=== PATIENT | male | born 1940 | race Caucasian/White ===

== ENCOUNTER 2018-03-29 13:51 | Inpatient (IN) | payer MEDICARE, OTHER ==
[2018-03-29] MEDS ORDERED: VANCOMYCIN IV PER PHARMACY 1 EACH MISC MISCELLANE PRN (15:54)
[2018-03-29] MEDS ORDERED: LORazepam 2 MG/ML INJ ONE (16:34)
--- NOTE | 2018-03-29 16:41 | P.CNPUL ---
History of Present Illness Consult date: 03/29/18 Reason for consult: dyspnea History of present illness: 77-year-old white male patient who has been recently admitted to [facility] because of shortness of breath and acute exacerbation of chronic bronchiectasis him a comes in to [facility] for the same reason. The patient back then was treated with IV antibiotics and bronchodilators and I had the chance to evaluate this patient's pulmonary status. He did show some improvement and he was discharged home following his sixth day of hospital admission. He came in again after being discharged for worsening shortness of breath without having any fever or chills. He had a minimal cough. His cough was congested. He denied having any chest pain. No altered mentation. He was getting progressively more hypoxic and his breathing was more labored overnight. I was informed of this admission by Dr. Daley , the hospitalist, who in turn wanted to chest for this patient to [facility] , and we accepted this patient for further care now Hospital. This patient has been followed up by Dr. Casas whereas been his stamper blocker for many years. 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 He has chronic dyspnea and he has not been on oxygen before. He has had chronic bronchiectasis many years back. The exact etiology has not been established. The patient was hospitalized once in December 2016 and the second time and February 2018. He was maintained on Bactrim 1 tablet 3 times a week for antibiotic prophylaxis. He has previous chest x-ray showed chronic bronchiectatic changes along with some limited scarring. His last CAT scan of the chest was in 2016 that showed extensive bronchiectatic changes with mucoid impaction of the airways. No history of any tuberculosis. No history of ABPA. No history of any hemoglobin deficiency. Baseline IgE level is not known. He has previous history of RA and he has been maintained on Imuran. He is known to have ulcerative colitis. No previous history of influenza or viral pneumonia as per history of any massive pneumonias of empyema. No hemoptysis. He is known to have also some peripheral neuropathy. His current labs from [facility] showed a white cell count of 5.47 with a hemoglobin of 9.3, and the rest of the blood work and electrolytes were essentially within normal limits. His troponins were negative. His sputum analysis that was done on showed usual respiratory felix. No previous infections with MRSA. No previous infections with gram-negative microbes such as Pseudomonas. Upon arrival to the intensive care unit, the patient was found to be in severe respiratory distress. Upon transport to our hospital the patient was placed on a BiPAP. He was on a BiPAP pressure of 80s over forward and FiO2 of 50%. His minute ventilation was above 25 L per minute. He was quite short of breath. He looks very emaciated and weak yet still awake. He was following some simple commands. Immediately, who placed this patient on our hospital BiPAP at a pressure of 14/6 cm of water with an FiO2 of 50%. The nephew is at the bedside. He does not want to get intubated or placed on a mechanical ventilator. No previous history of DVT or pulmonary embolism. I was a bit surprised by the condition as I was told that the patient was rather stable for transfer. I came to follow the patient was in severe acute respiratory distress and apparent is been going on for the past several hours. Home medication includes Advair 250/50 one puff twice a day, Bactrim double strength 1 tablet 3 times a week mild distal solution on a when necessary basis , aspirin 81 mg by mouth daily, Imuran 50 mg by mouth daily, sodium acetate 1 tablet daily, melatonin 1 mg at bedtime, metoprolol 25 mg by mouth daily, omeprazole 20 mg by mouth daily and temazepam 50 mg by mouth daily. He also has completed course of Ceftin 500 mg by mouth twice a day following his discharge from the hospital. Review of Systems Review of system is positive for weight loss, weakness, diminished appetite, chronic cough, congestion, mucus production, limitation of exercise capacity, chronic arthritic pain, chronic gastrointestinal symptoms related to ulcerative colitis which are currently inactive and stable. No altered mentation. No dysuria fixed urgency. No skin rashes. No falls. No active arthritis at this point in time. He has a remote history of smoking none for now. Past Medical History Additional Past Medical History / Comment(s): Severe cylindrical bronchiectasis , ulcerative colitis, rheumatoid arthritis maintained previously on methotrexate which was stopped due to pulmonary toxicity, remote history of empyema/pneumothorax, treated, cachexia, depression, coronary artery disease Additional Past Surgical History / Comment(s): Previous bronchoscopy, colonoscopy, EGD, chest tube placement Smoking Status: Former smoker (The patient is a former smoker. No active alcoholism. No similar IV drugs.) Past Alcohol Use History: None Reported Past Drug Use History: Unable to Obtain Medications and Allergies Home Medications and Allergies Comment(s): ALLERGIES to Vibramycin, M0, lisinopril, methotrexate and penicillin Physical Exam Gen. appearance, uncomfortable a severe degree of respirator distress currently on Bipap. He gets short of breath even while in the BiPAP and has a very high minute ventilation of at least 25-30 L per minute. He is unable to speak any sentences at this point in time. The patient is a thin cachectic frail elderly male patient. He is alert and oriented 3. His answering questions appropriately. Head exam was generally normal. There was no scleral icterus or corneal arcus. Mucous membranes were moist. Neck was supple and without jugular venous distension, thyromegaly, or carotid bruits. Carotids were easily palpable bilaterally. There was no adenopathy. Lungs sounds are actively diminished bilaterally there are a few crackles at lung bases and scattered rhonchi heard throughout the lung carter bilaterally. The patient is tachypneic. The patient has significant risk for this is using excessive muscle breathing. Cardiac exam revealed the PMI to be normally situated and sized. The rhythm was irregular and he is tachycardic and no extrasystoles were noted during several minutes of auscultation. The first and second heart sounds were normal and physiologic splitting of the second heart sound was noted. There were no murmurs , rubs, clicks, or gallops. Abdominal exam revealed normal bowel sounds. The abdomen was soft, non-tender, and without masses, organomegaly, or appreciable enlargement of the abdominal aorta. Examination of the extremities revealed easily palpable radial, femoral and pedal pulses. There was no cyanosis, clubbing or edema. Examination of the skin revealed no evidence of significant rashes, suspicious appearing nevi or other concerning lesions. Results - Diagnostic Findings Chest x-ray: image reviewed Assessment and Plan Plan: Assessment 1 acute exacerbation of chronic bronchiectasis. Rule out superimposed taken bronchitis/pneumonia. Rule out superimposed pulmonary embolism. 2 acute hypoxic respiratory failure secondary to above, initially placed on high flow oxygen currently on BiPAP at a pressure of 14/6 cm of water with an FiO2 of 50% and in impending respiratory failure. 3 history of chronic cylindrical bronchiectasis essentially involving the lower lobes with previous hospitalization. No documented or objective evidence of any gram-negative or a staphylococcal pulmonary infections in the past. 4 chronic mucous retention secondary to advanced bronchiectasis 5 chronic dyspnea secondary to above, with acute decompensation 6 chronic cachexia secondary to above 7 coronary artery disease 8 ulcerative colitis maintained on Imuran 9 chronic anxiety/depression 10 chronic antibiotic prophylaxis utilizing Bactrim. Plan We will cover this patient with DuoNeb nebulized treatments around the clock. Will put this patient on broad-spectrum antibiotics. The choice of antibiotics including a combination of cefepime and vancomycin for now. Note that the patient has received Bactrim prophylaxis on outpatient basis. Aggressive pulmonary toileting. Vest therapy if possible. Advice regarding nutrition. May need a bronchoscopy with therapeutic airway suctioning to improve his oxygenation if no improvement within the next 24-[address] scan of the chest with contrast to further evaluate this patient's acute hypoxic respiratory failure to make sure there is no other cause for this patient's respiratory failure. The patient ideally is intubated and placed on a mechanical ventilator. He has a DO NOT INTUBATE CODE STATUS. I'm going to readdress the situation. Stat chest x-ray. Stat blood gas. Continue BiPAP therapy for respiratory support. Ativan for anxiety. Check cardiac enzymes. Check BMP. Echocardiogram in a.m. Hold immunosuppression treatment. We'll continue to follow. Condition is critical. High risk for mortality based on his advanced lung disease and very poor baseline performance and functional status. Case was discussed with internal medicine, Dr. Best Time with Patient: Greater than 30
[2018-03-29] MEDS ORDERED: HEPARIN SODIUM,PORCINE 10,000 UNIT/ML 1 ML VIAL IV ONE (16:43)
[2018-03-29 16:55] LABS: ABG Base Excess 3.4 mmol/L; ABG HCO3 28 mmol/L (21-25); ABG Oxygen Saturation 97.2 % (94-97); ABG PCO2 40 mmHg (35-45); ABG PH 7.44 (7.35-7.45); ABG PO2 84 mmHg (83-108); ABG TCO2 29 mmol/L (19-24)
--- NOTE | 2018-03-29 16:56 | P.HPIM ---
History of Present Illness 77-year-old the male transferred from [facility] he was admitted there for acute respiratory failure and worsening pulmonary status patient was transferred here. Patient is DO NOT INTUBATE patient is DO NOT RESUSCITATE. Patient appears to have chronic bronchiectasis patient was admitted in the hospital recently for left lower lobe pneumonia subsequently treated Rocephin and was discharged home comes back again 10 days later with worsening respiratory failure presently on BiPAP with FiO2 of 50% patient is in ICU drying oven tender evaluated the patient. Patient has chronic dyspnea but not on oxygen at home. Patient was on antibiotic prophylaxis with Bactrim as an outpatient because of chronic bronchiectasis has history of ulcerative colitis on Imuran sputum cultures during his last hospitalization from March 21 did not show any significant abnormality. Upon evaluation here patient looked very sick to On BiPAP. Upon review of the CAT scans patient has severe bilateral bronchiectasis with emphysematous changes. This CAT scan was a while ago. Patient appears to have severe chronic lung disease in the form of bronchiectasis. Now acute respiratory failure. Patient is undergoing workup with ABGs, patient will be empirically started on IV heparin for possible pulmonary embolism d-dimer will be obtained BNP will be obtained patient does not have any elevated JVD chest x-ray showed mediastinal shift with significant lung disease possibility of left lower lobe pneumonia patient is on cefepime empirically being covered for this until the etiology of his acute respiratory failure is known. She is undergoing CT of the chest with contrast to rule out pulmonary embolism and also to see if there is any mucous plug that Tomy and drying oven tender evaluated the patient discussed with the family members. Review of Systems Unable to obtain due to his respiratory distress Past Medical History Additional Past Medical History / Comment(s): Severe cylindrical bronchiectasis , ulcerative colitis, rheumatoid arthritis maintained previously on methotrexate which was stopped due to pulmonary toxicity, remote history of empyema/pneumothorax, treated, cachexia, depression, coronary artery disease Additional Past Surgical History / Comment(s): Previous bronchoscopy, colonoscopy, EGD, chest tube placement Smoking Status: Former smoker (The patient is a former smoker. No active alcoholism. No similar IV drugs.) Past Alcohol Use History: None Reported Past Drug Use History: Unable to Obtain Medications and Allergies Allergies Allergy/AdvReac Type Severity Reaction Status Date / Time isosorbide [From Imdur] Allergy Unknown Verified 03/29/18 16:36 lisinopril Allergy Unknown Verified 03/29/18 16:36 methotrexate Allergy Unknown Verified 03/29/18 16:36 Penicillins Allergy Unknown Verified 03/29/18 16:36 fibromycin Allergy Unknown Uncoded 03/29/18 16:36 Physical Exam Vitals: Intake and Output 03/29/18 03/29/18 03/29/18 06:59 14:59 22:59 Other: Weight 49.895 kg PHYSICAL EXAMINATION: GENERAL: The patient is alert and oriented x3, Well developed, well nourished. HEENT: Pupils are round and equally reacting to light. EOMI. No scleral icterus. No conjunctival pallor. Normocephalic, atraumatic. No pharyngeal erythema. No thyromegaly. CARDIOVASCULAR: S1 and S2 present. No murmurs, rubs, or gallops. PULMONARY: Scattered rhonchi and crackles in bilateral lower lung bases using accessory muscles of breathing on BiPAP ABDOMEN: Soft, nontender, nondistended, normoactive bowel sounds. No palpable organomegaly. MUSCULOSKELETAL: No joint swelling or deformity. EXTREMITIES: No cyanosis, clubbing, or pedal edema. NEUROLOGICAL: Gross neurological examination did not reveal any focal deficits. SKIN: No rashes. Assessment and Plan Plan: Acute hypoxic respiratory failure: Probably secondary to bronchitis mucous plug , patient is DO NOT INTUBATE because of which saw to do bronchoscopy. Patient will undergo CAT scan ABGs. Patient will be covered with empiric antibiotics cefepime sputum cultures will be obtained. Patient was also started on high intensity heparin until we rule out any pulmonary embolism rate severe bronchiectasis and chronic lung disease COPD emphysema contributed to his respiratory failure and patient is also on systemic steroids -Chronic bronchiectasis -Atrial fibrillation patient was started on Cardizem IV heparin echocardiogram will be obtained -Cachexia weight loss secondary to bronchiectasis moderate protein calorie malnutrition -Coronary artery disease -Ulcerative colitis on Imuran rheumatoid arthritis -Depression
[2018-03-29 16:58] LABS: Glucose,Whole Blood 114 mg/dL (75-99)
[2018-03-29] MEDS: IPRATROPIUM-ALBUTEROL 3 ML NEB INHALATION SCH ×3 (16:59→23:20)
[2018-03-29] MEDS: DILTIAZEM 50 MG in SODIUM CHLORIDE 0.9% 40 ML IV SCH (17:00)
[2018-03-29] MEDS ORDERED: VANCOMYCIN 1,000 MG in SODIUM CHLORIDE 0.9% 250 ML IVPB ONE (17:00)
--- NOTE | 2018-03-29 17:06 | XR ---
EXAMINATION TYPE: XR chest 1V portable DATE OF EXAM: 03/29/2018 COMPARISON: NONE HISTORY: Respiratory distress TECHNIQUE: Single frontal view of the chest is obtained. FINDINGS: Patient is rotated. There are overlying cardiac leads. Parenchymal densities are present a t the lung bases, left upper lobe. No definite pneumothorax. Apical pleural thickening is noted on th e left. Nodular appearance present at the lung bases. IMPRESSION: Rotated exam. There may be underlying congestive heart failure, cannot exclude multiple lung nodules. Chest CT may be of benefit. Rotated exam, limited.
[2018-03-29] MEDS ORDERED: DEXTROSE 5% IN WATER 100 ML with AMIODARONE 150 MG IV ONE (17:26)
[2018-03-29 17:35] LABS: HCT 31.8 % (39.0-53.0); HGB 10.3 gm/dL (13.0-17.5); MCH 28.1 pg (25.0-35.0); MCHC 32.2 g/dL (31.0-37.0); MCV 87.3 fL (80.0-100.0); Mean Platelet Volume 7.3; Platelet Count 116 k/uL (150-450); RBC 3.65 m/uL (4.30-5.90); WBC 4.8 k/uL (3.8-10.6)
[2018-03-29 17:44] LABS: Anion Gap 7 mmol/L; Blood Urea Nitrogen 27 mg/dL (9-20); Calcium 7.5 mg/dL (8.4-10.2); Carbon Dioxide 27 mmol/L (22-30); Chloride 99 mmol/L (98-107); Glucose 110 mg/dL (74-99); Potassium 3.8 mmol/L (3.5-5.1); Sodium 133 mmol/L (137-145)
[2018-03-29 17:45] LABS: D-Dimer 1.56 mg/L FEU (<0.60); INR 1.3 (<1.2); Partial Thromboplastin Time 33.1 sec (22.0-30.0); Prothrombin Time 13.1 sec (9.0-12.0)
[2018-03-29] MEDS: HEPARIN SODIUM,PORCINE 5,000 UNIT/ML 1 ML VIAL IV PRN ×2 (17:45→17:46)
[2018-03-29] MEDS: methylPREDNISolone SOD SUCCI 125 MG/2 ML VIAL IV SCH (17:46)
[2018-03-29] MEDS: AMIODARONE 450 MG in DEXTROSE 5% IN WATER 250 ML IV SCH ×2 (18:07)
[2018-03-29 18:11] LABS: Band Neutrophils % 15 %; Eosinophils # (M) 0.05 k/uL (0-0.7); Lymphocytes # (M) 0.34 k/uL (1.0-4.8); Monocytes # (M) 0.05 k/uL (0-1.0); Neutrophils % (M) 76 %; Nucleated Red Blood Cells 0 /100 WBC (0-0); Total Cells Counted 100
[2018-03-29 18:12] LABS: Poikilocytosis (M) Present
[2018-03-29] MEDS: HEPARIN SOD,PORK IN 0.45% NACL 25,000 UNIT in 0.45% NACL 1 500ML.BAG IV SCH (18:13)
[2018-03-29] MEDS ORDERED: Potassium Replacement Protocol 1 EACH MISC MISCELLANE PRN (19:17)
[2018-03-29] MEDS ORDERED: NALOXONE 0.4 MG/ML 1 ML VIAL IV PRN (19:31)
[2018-03-29 19:35] LABS: Appearance,Urine Clear (Clear); Bilirubin,Urine Negative (Negative); Blood,Urine Negative (Negative); Color,Urine Yellow; Glucose,Urine (UA) Negative (Negative); Hyaline Casts,Urine 1 /lpf (0-2); Ketones,Urine 1+ (Negative); Leukocyte Esterase,Urine Negative (Negative); Mucus,Urine Few /hpf; Nitrite,Urine Negative (Negative); Protein,Urine 1+ (Negative); Specific Gravity,Urine 1.027 (1.001-1.035); Urobilinogen,Urine <2.0 mg/dL (<2.0); WBC,Urine 2 /hpf (0-5)
[2018-03-29 19:50] LABS: Magnesium 1.7 mg/dL (1.6-2.3); Phosphorus 3.6 mg/dL (2.5-4.5)
[2018-03-29] MEDS: BUDESONIDE 0.5 MG/2 ML NEBU INHALATION SCH (20:28)
[2018-03-29] MEDS: FORMOTEROL FUMARATE 20 MCG/2 ML NEBU INHALATION SCH (20:28)
[2018-03-29] MEDS: PANTOPRAZOLE 40 MG/10 ML VIAL IV SCH (22:06)
[2018-03-29] MEDS: POTASSIUM CHLORIDE 10 MEQ in WATER FOR INJECTION 1 100ML.BAG IVPB SCH ×2 (22:07→23:18)
[2018-03-29] MEDS: LORazepam 2 MG/ML INJ IV PRN (22:07)
[2018-03-29] MEDS: CEFEPIME 2 GM in SODIUM CHLORIDE 0.9% 50 ML IVPB SCH (22:08)
[2018-03-29] MEDS ORDERED: Magnesium Replacement Protocol 1 EACH MISC MISCELLANE PRN (23:48)
[2018-03-30] MEDS: methylPREDNISolone SOD SUCCI 125 MG/2 ML VIAL IV SCH ×4 (00:25→18:53)
[2018-03-30] MEDS: HEPARIN SODIUM,PORCINE 5,000 UNIT/ML 1 ML VIAL IV PRN (01:13)
[2018-03-30] MEDS: AMIODARONE 450 MG in DEXTROSE 5% IN WATER 250 ML IV SCH ×6 (01:15→18:51)
[2018-03-30] MEDS: MAGNESIUM SULFATE-D5W PMX 1 GM in DEXTROSE/WATER 1 100ML.BAG IVPB SCH ×2 (01:15→02:29)
[2018-03-30] MEDS: LORazepam 2 MG/ML INJ IV PRN ×2 (02:28→06:55)
[2018-03-30] MEDS: IPRATROPIUM-ALBUTEROL 3 ML NEB INHALATION SCH ×6 (03:17→23:38)
[2018-03-30 04:06] VITALS: BMI 14.8
[2018-03-30 06:04] LABS: HGB 9.5 gm/dL (13.0-17.5); MCH 28.7 pg (25.0-35.0); MCHC 32.9 g/dL (31.0-37.0); MCV 87.1 fL (80.0-100.0); Mean Platelet Volume 7.5; Platelet Count 117 k/uL (150-450); RBC 3.33 m/uL (4.30-5.90); RDW 15.8 % (11.5-15.5); WBC 6.9 k/uL (3.8-10.6)
[2018-03-30 06:32] LABS: ALT 24 U/L (21-72); AST 20 U/L (17-59); Albumin 1.8 g/dL (3.5-5.0); Alkaline Phosphatase 52 U/L (38-126); Anion Gap 8 mmol/L; Blood Urea Nitrogen 26 mg/dL (9-20); Calcium 7.6 mg/dL (8.4-10.2); Carbon Dioxide 22 mmol/L (22-30); Chloride 105 mmol/L (98-107); Glucose 182 mg/dL (74-99); Magnesium 2.4 mg/dL (1.6-2.3); Phosphorus 3.5 mg/dL (2.5-4.5); Potassium 4.6 mmol/L (3.5-5.1); Sodium 135 mmol/L (137-145); Total Protein 4.7 g/dL (6.3-8.2)
--- NOTE | 2018-03-30 06:40 | XR ---
EXAMINATION TYPE: XR chest 1V DATE OF EXAM: 03/30/2018 HISTORY: possible PE. REFERENCE: Previous study dated 03/29/2018. FINDINGS: The exam is somewhat rotated. The heart is not enlarged. There is worsening alveolar and in terstitial airspace disease. There is confluent opacity at the left lung base. There are small, bilat eral effusions. IMPRESSION: 1. COARSE INTERSTITIAL AIRSPACE DISEASE. SOME OF THIS MAY BE CHRONIC. 2. I COULD NOT EXCLUDE SOME DEGREE OF HEART FAILURE. 3. SMALL, BILATERAL EFFUSIONS.
[2018-03-30 06:48] LABS: Band Neutrophils % 18 %; Lymphocytes # (M) 0.48 k/uL (1.0-4.8); Monocytes # (M) 0.07 k/uL (0-1.0); Myelocytes # (M) 0.07 k/uL (0); Myelocytes % 1 %; Neutrophils % (M) 73 %; Nucleated Red Blood Cells 0 /100 WBC (0-0); Total Cells Counted 200
[2018-03-30] MEDS: DILTIAZEM 50 MG in SODIUM CHLORIDE 0.9% 40 ML IV SCH ×2 (06:55→09:14)
[2018-03-30] MEDS: FORMOTEROL FUMARATE 20 MCG/2 ML NEBU INHALATION SCH ×2 (07:54→19:37)
[2018-03-30] MEDS: BUDESONIDE 0.5 MG/2 ML NEBU INHALATION SCH ×2 (07:54→19:37)
[2018-03-30] MEDS ORDERED: ENOXAPARIN 40 MG/0.4 ML SYRINGE SQ SCH (09:00)
[2018-03-30 09:11] LABS: Glucose,Whole Blood 179 mg/dL (75-99)
[2018-03-30] MEDS: INSULIN ASPART 100 UNIT/ML 1 ML 10 ML VIAL SQ SCH ×3 (09:13→18:50)
[2018-03-30] MEDS: TAMSULOSIN 0.4 MG CAP.ER.24H PO SCH (09:14)
[2018-03-30] MEDS: PANTOPRAZOLE 40 MG/10 ML VIAL IV SCH (09:15)
[2018-03-30] MEDS: METOPROLOL SUCCINATE (ER) 25 MG TAB.ER.24H PO SCH (09:15)
[2018-03-30 09:17] LABS: ABG Base Excess -1.8 mmol/L; ABG HCO3 24 mmol/L (21-25); ABG Oxygen Saturation 99.6 % (94-97); ABG PCO2 48 mmHg (35-45); ABG PH 7.31 (7.35-7.45); ABG PO2 152 mmHg (83-108); ABG TCO2 26 mmol/L (19-24)
[2018-03-30] MEDS: CEFEPIME 2 GM in SODIUM CHLORIDE 0.9% 50 ML IVPB SCH ×2 (09:17→20:50)
[2018-03-30] MEDS: VANCOMYCIN 750 MG in SODIUM CHLORIDE 0.9% 250 ML IVPB SCH ×2 (09:18→18:54)
[2018-03-30] MEDS: NOREPINEPHRINE 4 MG in SODIUM CHLORIDE 0.9% 250 ML IV SCH ×2 (09:42→12:37)
[2018-03-30 12:14] LABS: Glucose,Whole Blood 171 mg/dL (75-99)
--- NOTE | 2018-03-30 13:42 | P.PN ---
Subjective Progress Note Date: 03/30/18 77-year-old white male patient who has been recently admitted to [facility] because of shortness of breath and acute exacerbation of chronic bronchiectasis him a comes in to [facility] for the same reason. The patient back then was treated with IV antibiotics and bronchodilators and I had the chance to evaluate this patient's pulmonary status. He did show some improvement and he was discharged home following his sixth day of hospital admission. He came in again after being discharged for worsening shortness of breath without having any fever or chills. He had a minimal cough. His cough was congested. He denied having any chest pain. No altered mentation. He was getting progressively more hypoxic and his breathing was more labored overnight. I was informed of this admission by Dr. Daley , the hospitalist, who in turn wanted to chest for this patient to [facility] , and we accepted this patient for further care now Hospital. This patient has been followed up by Dr. 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 He has chronic dyspnea and he has not been on oxygen before. He has had chronic bronchiectasis many years back. The exact etiology has not been established. The patient was hospitalized once in December 2016 and the second time and February 2018. He was maintained on Bactrim 1 tablet 3 times a week for antibiotic prophylaxis. He has previous chest x-ray showed chronic bronchiectatic changes along with some limited scarring. His last CAT scan of the chest was in 2016 that showed extensive bronchiectatic changes with mucoid impaction of the airways. No history of any tuberculosis. No history of ABPA. No history of any hemoglobin deficiency. Baseline IgE level is not known. He has previous history of RA and he has been maintained on Imuran. He is known to have ulcerative colitis. No previous history of influenza or viral pneumonia as per history of any massive pneumonias of empyema. No hemoptysis. He is known to have also some peripheral neuropathy. His current labs from [facility] showed a white cell count of 5.47 with a hemoglobin of 9.3, and the rest of the blood work and electrolytes were essentially within normal limits. His troponins were negative. His sputum analysis that was done on showed usual respiratory felix. No previous infections with MRSA. No previous infections with gram-negative microbes such as Pseudomonas. Upon arrival to the intensive care unit, the patient was found to be in severe respiratory distress. Upon transport to our hospital the patient was placed on a BiPAP. He was on a BiPAP pressure of 80s over forward and FiO2 of 50%. His minute ventilation was above 25 L per minute. He was quite short of breath. He looks very emaciated and weak yet still awake. He was following some simple commands. Immediately, who placed this patient on our hospital BiPAP at a pressure of 14/6 cm of water with an FiO2 of 50%. The nephew is at the bedside. He does not want to get intubated or placed on a mechanical ventilator. No previous history of DVT or pulmonary embolism. I was a bit surprised by the condition as I was told that the patient was rather stable for transfer. I came to follow the patient was in severe acute respiratory distress and apparent is been going on for the past several hours. Home medication includes Advair 250/50 one puff twice a day, Bactrim double strength 1 tablet 3 times a week mild distal solution on a when necessary basis , aspirin 81 mg by mouth daily, Imuran 50 mg by mouth daily, sodium acetate 1 tablet daily, melatonin 1 mg at bedtime, metoprolol 25 mg by mouth daily, omeprazole 20 mg by mouth daily and temazepam 50 mg by mouth daily. He also has completed course of Ceftin 500 mg by mouth twice a day following his discharge from the hospital. On today's evaluation of 03/30/2008 and I'm seeing this patient in the intensive care unit. The patient was transferred to our hospital because of an acute respiratory failure. Overnight he was kept on a BiPAP at a pressure of 14 /6 cm of water. FiO2 is gradually wean down to 45%. On today's evaluation, is very much lethargic. He is less short of breath and his minute ventilation has dropped significantly. Yet he is very much BiPAP dependent. As mentioned earlier looks very cachectic and emaciated and malnourished. He is strictly BiPAP dependent point in time. His chest x-ray is showing coarse interstitial airspace disease along with small bilateral pleural effusions. Noted the patient is an extensive bronchiectasis bilaterally. I have and accommodation of IV cefepime and vancomycin. The patient was on stable enough to be taken to radiology for a CAT scan of the chest. Hemodynamically, the patient went into atrial fibrillation with rapid ventricular response. Overnight, he was placed on high dose Cardizem drip at 50 mg an hour and he was also placed on amiodarone for rate control. This morning is converted back to normal sinus rhythm. His rhythm is sinus and the Cardizem drip was discontinued. He is on a maintenance amiodarone 0.5 mg per minute. He is producing adequate amount of urine output. No fever or chills. His white cell count is not elevated at 6.9. He was placed on IV heparin. Morning blood gases showed a pH of 7.31 with a pCO2 of 48 and pO2 of 152. And the troponin leak is noted. Albumin level is down to 1.8. The family is the bedside. Atelectatic discussion with them. Expanded and the poor prognosis especially with his very much malnourished and emaciated and he has very poor reserve and baseline performance and functional status also poor. Objective - Vital Signs Vital signs: Vital Signs Temp 97.7 F 03/30/18 08:00 Pulse 83 03/30/18 12:09 Resp 27 H 03/30/18 09:30 BP 111/57 03/30/18 09:30 Pulse Ox 96 03/30/18 09:30 Intake & Output 03/29/18 03/30/18 03/30/18 18:59 06:59 18:59 Intake Total 2109.424 876.895 Output Total 700 185 Balance 1409.424 691.895 Weight 49.895 kg 59.5 kg Intake: IV 1855 540 .9 975 225 Cefepime 2 gm In Sodium 50 50 Chloride 0.9% 50 ml @ 100 mls/hr IVPB Q12HR [facility] Rx #:[id number] Dextrose 5% in Water 100 150 ml @ 618 mls/hr IV .Q10M ONE with Amiodarone 150 mg Rx#:[id number] Diltiazem 50 mg In Sodium 30 15 Chloride 0.9% 40 ml @ 5 MG/HR 5 mls/hr IV .Q10H [facility] Rx#:[id number] Magnesium Sulfate-D5w Pmx 200 1 gm In Dextrose/Water 1 100ml.bag @ 100 mls/hr IVPB Q1H [facility] Rx#: [id number] Potassium Chloride 10 meq 200 In Water For Injection 1 100ml.bag @ 100 mls/hr IVPB Q1H [facility] Rx#: [id number] Vancomycin 1,000 mg In 250 250 Sodium Chloride 0.9% 250 ml @ 125 mls/hr IVPB ONCE ONE Rx#:[id number] Intake, IV Titration 254.424 336.895 Amount Amiodarone 450 mg In 204.424 250 Dextrose 5% in Water 250 ml @ 1 MG/MIN 33.33 mls/ hr IV .Q7H31M [facility] Rx#: [id number] Diltiazem 50 mg In Sodium 50 11.583 Chloride 0.9% 40 ml @ 5 MG/HR 5 mls/hr IV .Q10H [facility] Rx#:[id number] Norepinephrine 4 mg In 75.312 Sodium Chloride 0.9% 250 ml @ Titrate IV .Q0M [facility] Rx#:[id number] Output: Urine 700 185 Other: Voiding Method Indwelling Catheter Indwelling Catheter Indwelling Catheter - Exam Gen. appearance, uncomfortable a severe degree of respirator distress currently on Bipap. The patient is BiPAP dependent. Despite improvement in his been ventilation, is still unable to come off the BiPAP and is able to tolerate a full face BiPAP mask without any major difficulties. The patient is a thin cachectic frail elderly male patient. He is more lethargic and sleepy on today's evaluation although arousable. Head exam was generally normal. There was no scleral icterus or corneal arcus. Mucous membranes were moist. Neck was supple and without jugular venous distension, thyromegaly, or carotid bruits. Carotids were easily palpable bilaterally. There was no adenopathy. Lungs sounds are actively diminished bilaterally there are a few crackles at lung bases and scattered rhonchi heard throughout the lung carter bilaterally. The patient is tachypneic. The patient has significant risk for this is using excessive muscle breathing. Cardiac exam revealed the PMI to be normally situated and sized. The rhythm was irregular and he is tachycardic and no extrasystoles were noted during several minutes of auscultation. The first and second heart sounds were normal and physiologic splitting of the second heart sound was noted. There were no murmurs , rubs, clicks, or gallops. Abdominal exam revealed normal bowel sounds. The abdomen was soft, non-tender, and without masses, organomegaly, or appreciable enlargement of the abdominal aorta. Examination of the extremities revealed easily palpable radial, femoral and pedal pulses. There was no cyanosis, clubbing or edema. Examination of the skin revealed no evidence of significant rashes, suspicious appearing nevi or other concerning lesions. - Labs CBC & Chem 7: 03/30/18 05:46 03/30/18 05:46 Labs: Abnormal Lab Results - Last 24 Hours (Table) 03/29/18 03/29/18 03/29/18 Range/Units 16:52 16:56 17:10 RBC 3.65 L (4.30-5.90) m/uL Hgb 10.3 L (13.0-17.5) gm/dL Hct 31.8 L (39.0-53.0) % RDW 16.0 H (11.5-15.5) % Plt Count 116 L (150-450) k/uL Lymphocytes # (Manual) 0.34 L (1.0-4.8) k/uL Myelocytes # (Manual) (0) k/uL PT (9.0-12.0) sec INR (<1.2) APTT (22.0-30.0) sec D-Dimer (<0.60) mg/L FEU ABG pH (7.35-7.45) ABG pCO2 (35-45) mmHg ABG pO2 (83-108) mmHg ABG HCO3 28 H (21-25) mmol/L ABG Total CO2 29 H (19-24) mmol/L ABG O2 Saturation 97.2 H (94-97) % Sodium (137-145) mmol/L BUN (9-20) mg/dL Creatinine (0.66-1.25) mg/dL Glucose (74-99) mg/dL POC Glucose (mg/dL) 114 H (75-99) mg/dL Calcium (8.4-10.2) mg/dL Magnesium (1.6-2.3) mg/dL Troponin I (0.000-0.034) ng/mL Total Protein (6.3-8.2) g/dL Albumin (3.5-5.0) g/dL Urine Protein (Negative) Urine Ketones (Negative) Urine Mucus (None) /hpf 12/12/0703/29/18 03/29/18 Range/Units 17:10 17:10 19:00 RBC (4.30-5.90) m/uL Hgb (13.0-17.5) gm/dL Hct (39.0-53.0) % RDW (11.5-15.5) % Plt Count (150-450) k/uL Lymphocytes # (Manual) (1.0-4.8) k/uL Myelocytes # (Manual) (0) k/uL PT 13.1 H (9.0-12.0) sec INR 1.3 H (<1.2) APTT 33.1 H (22.0-30.0) sec D-Dimer 1.56 H (<0.60) mg/L FEU ABG pH (7.35-7.45) ABG pCO2 (35-45) mmHg ABG pO2 (83-108) mmHg ABG HCO3 (21-25) mmol/L ABG Total CO2 (19-24) mmol/L ABG O2 Saturation (94-97) % Sodium 133 L (137-145) mmol/L BUN 27 H (9-20) mg/dL Creatinine 0.55 L (0.66-1.25) mg/dL Glucose 110 H (74-99) mg/dL POC Glucose (mg/dL) (75-99) mg/dL Calcium 7.5 L (8.4-10.2) mg/dL Magnesium (1.6-2.3) mg/dL Troponin I (0.000-0.034) ng/mL Total Protein (6.3-8.2) g/dL Albumin (3.5-5.0) g/dL Urine Protein 1+ H (Negative) Urine Ketones 1+ H (Negative) Urine Mucus Few H (None) /hpf 03/29/18 03/29/18 03/30/18 Range/Units 23:19 23:19 05:46 RBC 3.33 L (4.30-5.90) m/uL Hgb 9.5 L (13.0-17.5) gm/dL Hct 29.0 L (39.0-53.0) % RDW 15.8 H (11.5-15.5) % Plt Count 117 L (150-450) k/uL Lymphocytes # (Manual) 0.48 L (1.0-4.8) k/uL Myelocytes # (Manual) 0.07 H (0) k/uL PT (9.0-12.0) sec INR (<1.2) APTT 33.3 H (22.0-30.0) sec D-Dimer (<0.60) mg/L FEU ABG pH (7.35-7.45) ABG pCO2 (35-45) mmHg ABG pO2 (83-108) mmHg ABG HCO3 (21-25) mmol/L ABG Total CO2 (19-24) mmol/L ABG O2 Saturation (94-97) % Sodium (137-145) mmol/L BUN (9-20) mg/dL Creatinine (0.66-1.25) mg/dL Glucose (74-99) mg/dL POC Glucose (mg/dL) (75-99) mg/dL Calcium (8.4-10.2) mg/dL Magnesium (1.6-2.3) mg/dL Troponin I 0.106 H* (0.000-0.034) ng/mL Total Protein (6.3-8.2) g/dL Albumin (3.5-5.0) g/dL Urine Protein (Negative) Urine Ketones (Negative) Urine Mucus (None) /hpf 03/30/18 03/30/18 03/30/18 Range/Units 05:46 05:46 05:46 RBC (4.30-5.90) m/uL Hgb (13.0-17.5) gm/dL Hct (39.0-53.0) % RDW (11.5-15.5) % Plt Count (150-450) k/uL Lymphocytes # (Manual) (1.0-4.8) k/uL Myelocytes # (Manual) (0) k/uL PT (9.0-12.0) sec INR (<1.2) APTT 39.6 H (22.0-30.0) sec D-Dimer (<0.60) mg/L FEU ABG pH (7.35-7.45) ABG pCO2 (35-45) mmHg ABG pO2 (83-108) mmHg ABG HCO3 (21-25) mmol/L ABG Total CO2 (19-24) mmol/L ABG O2 Saturation (94-97) % Sodium 135 L (137-145) mmol/L BUN 26 H (9-20) mg/dL Creatinine 0.59 L (0.66-1.25) mg/dL Glucose 182 H (74-99) mg/dL POC Glucose (mg/dL) (75-99) mg/dL Calcium 7.6 L (8.4-10.2) mg/dL Magnesium 2.4 H (1.6-2.3) mg/dL Troponin I 0.113 H* (0.000-0.034) ng/mL Total Protein 4.7 L (6.3-8.2) g/dL Albumin 1.8 L (3.5-5.0) g/dL Urine Protein (Negative) Urine Ketones (Negative) Urine Mucus (None) /hpf 03/30/18 03/30/18 03/30/18 Range/Units 09:08 09:14 12:12 RBC (4.30-5.90) m/uL Hgb (13.0-17.5) gm/dL Hct (39.0-53.0) % RDW (11.5-15.5) % Plt Count (150-450) k/uL Lymphocytes # (Manual) (1.0-4.8) k/uL Myelocytes # (Manual) (0) k/uL PT (9.0-12.0) sec INR (<1.2) APTT (22.0-30.0) sec D-Dimer (<0.60) mg/L FEU ABG pH 7.31 L (7.35-7.45) ABG pCO2 48 H (35-45) mmHg ABG pO2 152 H (83-108) mmHg ABG HCO3 (21-25) mmol/L ABG Total CO2 26 H (19-24) mmol/L ABG O2 Saturation 99.6 H (94-97) % Sodium (137-145) mmol/L BUN (9-20) mg/dL Creatinine (0.66-1.25) mg/dL Glucose (74-99) mg/dL POC Glucose (mg/dL) 179 H 171 H (75-99) mg/dL Calcium (8.4-10.2) mg/dL Magnesium (1.6-2.3) mg/dL Troponin I (0.000-0.034) ng/mL Total Protein (6.3-8.2) g/dL Albumin (3.5-5.0) g/dL Urine Protein (Negative) Urine Ketones (Negative) Urine Mucus (None) /hpf 03/30/18 Range/Units 12:31 RBC (4.30-5.90) m/uL Hgb (13.0-17.5) gm/dL Hct (39.0-53.0) % RDW (11.5-15.5) % Plt Count (150-450) k/uL Lymphocytes # (Manual) (1.0-4.8) k/uL Myelocytes # (Manual) (0) k/uL PT (9.0-12.0) sec INR (<1.2) APTT 38.9 H (22.0-30.0) sec D-Dimer (<0.60) mg/L FEU ABG pH (7.35-7.45) ABG pCO2 (35-45) mmHg ABG pO2 (83-108) mmHg ABG HCO3 (21-25) mmol/L ABG Total CO2 (19-24) mmol/L ABG O2 Saturation (94-97) % Sodium (137-145) mmol/L BUN (9-20) mg/dL Creatinine (0.66-1.25) mg/dL Glucose (74-99) mg/dL POC Glucose (mg/dL) (75-99) mg/dL Calcium (8.4-10.2) mg/dL Magnesium (1.6-2.3) mg/dL Troponin I (0.000-0.034) ng/mL Total Protein (6.3-8.2) g/dL Albumin (3.5-5.0) g/dL Urine Protein (Negative) Urine Ketones (Negative) Urine Mucus (None) /hpf Microbiology - Last 24 Hours (Table) 03/29/18 19:00 Urine Culture - Preliminary Urine,Voided Assessment and Plan Plan: Assessment 1 acute exacerbation of chronic bronchiectasis. Rule out superimposed taken bronchitis/pneumonia. Rule out superimposed pulmonary embolism. The patient has dense coarse breath and pulmonary infiltrates and a superimposed pneumonia in addition to chronic bronchiectasis cannot be completely excluded. He is currently on a combination of bronchodilators, systemic steroids, and IV antibiotics. He is very much BiPAP dependent. 2 acute hypoxic respiratory failure secondary to above, initially placed on high flow oxygen currently on BiPAP at a pressure of 14/6 cm of water with an FiO2 of 50% and in impending respiratory failure. 3 history of chronic cylindrical bronchiectasis essentially involving the lower lobes with previous hospitalization. No documented or objective evidence of any gram-negative or a staphylococcal pulmonary infections in the past. 4 chronic mucous retention secondary to advanced bronchiectasis 5 chronic dyspnea secondary to above, with acute decompensation 6 chronic cachexia secondary to above 7 coronary artery disease 8 ulcerative colitis maintained on Imuran 9 chronic anxiety/depression 10 chronic antibiotic prophylaxis utilizing Bactrim. 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 Plan Pulses remains extremely poor. Despite some improvement since yesterday, the patient is still BiPAP dependent. He remains a DNR/DNI CODE STATUS. He looks still initiated weak and cachectic. He is lethargic. His cough and mechanism is poor.. He is significantly debilitated. Likely her that the patient will recover from this is extremely low. We'll continue the treatment based on the family's wishes. He has a DNR/DNI CODE STATUS. Continue bronchodilators and steroids and antibiotics. Of the Cardizem drip and keep the amiodarone maintenance at 0.5 mg per minute. No pressors for now. DVT and GI prophylaxis. We'll continue to follow. His evaluation was done and more than 30 minutes including a lengthy discussion that was done with the and his brother at the bedside. Time with Patient: Greater than 30
[2018-03-30] MEDS ORDERED: SODIUM CHLORIDE 0.9% 1,000 ML IV ONE (14:17)
--- NOTE | 2018-03-30 15:11 | P.PN ---
Subjective 77-year-old transfer from my [facility] for acute hypoxic respiratory failure secondary to severe bronchiectasis. Patient is also being treated for pulmonary embolism although possibly day which is low patient cannot get a CAT scan because he is too unstable to lie flat patient remains on BiPAP although his respiratory status significantly improved and tachypnea improved and his respirations are only 20 although his overall prognosis is extremely poor same thing was discussed with the family. Patient has significant emphysema on the CAT scan along with severe bronchiectasis with multiple exacerbations in the recent past and is a mediastinal shift without any pneumothorax on the right side mediastinal shift towards the left side mucus plugging cannot be ruled out although bronchoscopy cannot be done as patient doesn't want to be intubated patient is awake alert and less lethargic and less short of breath today please refer to arterial dictation for ABGs and the BiPAP settings. Patient is on present pressors support and broad-spectrum antibiotics. Mild troponin elevation secondary to hypoxemia no chest pain at this time. Because of atrial fibrillation patient was on initially on Cardizem now on amiodarone. If needed will consult cardiology Unable to obtain review of systems because patient is on BiPAP although is answering questions of property with head nodding. All his medications were reviewed appropriate changes were discussed in the interval history and assessment and plan Objective - Vital Signs Vital signs: Vital Signs Temp 98.2 F 03/30/18 12:00 Pulse 84 03/30/18 13:30 Resp 27 H 03/30/18 13:45 BP 104/62 03/30/18 13:45 Pulse Ox 99 03/30/18 13:45 Intake & Output 03/29/18 03/30/18 03/30/18 18:59 06:59 18:59 Intake Total 2109.424 1214.645 Output Total 700 315 Balance 1409.424 899.645 Weight 49.895 kg 59.5 kg Intake: IV 1855 865 .9 975 450 Cefepime 2 gm In Sodium 50 150 Chloride 0.9% 50 ml @ 100 mls/hr IVPB Q12HR [facility] Rx #:[id number] Dextrose 5% in Water 100 150 ml @ 618 mls/hr IV .Q10M ONE with Amiodarone 150 mg Rx#:[id number] Diltiazem 50 mg In Sodium 30 15 Chloride 0.9% 40 ml @ 5 MG/HR 5 mls/hr IV .Q10H [facility] Rx#:[id number] Magnesium Sulfate-D5w Pmx 200 1 gm In Dextrose/Water 1 100ml.bag @ 100 mls/hr IVPB Q1H [facility] Rx#: [id number] Potassium Chloride 10 meq 200 In Water For Injection 1 100ml.bag @ 100 mls/hr IVPB Q1H [facility] Rx#: [id number] Vancomycin 1,000 mg In 250 250 Sodium Chloride 0.9% 250 ml @ 125 mls/hr IVPB ONCE ONE Rx#:[id number] Intake, IV Titration 254.424 349.645 Amount Amiodarone 450 mg In 204.424 250 Dextrose 5% in Water 250 ml @ 1 MG/MIN 33.33 mls/ hr IV .Q7H31M [facility] Rx#: [id number] Diltiazem 50 mg In Sodium 50 11.583 Chloride 0.9% 40 ml @ 5 MG/HR 5 mls/hr IV .Q10H [facility] Rx#:[id number] Norepinephrine 4 mg In 88.062 Sodium Chloride 0.9% 250 ml @ Titrate IV .Q0M [facility] Rx#:[id number] Output: Urine 700 315 Other: Voiding Method Indwelling Catheter Indwelling Catheter Indwelling Catheter - Exam PHYSICAL EXAMINATION: GENERAL: The patient is alert and oriented x3, thin built small nourished moderate malnourishment on BiPAP in mild respiratory distress HEENT: Pupils are round and equally reacting to light. EOMI. No scleral icterus. No conjunctival pallor. Normocephalic, atraumatic. No pharyngeal erythema. No thyromegaly. CARDIOVASCULAR: S1 and S2 present. No murmurs, rubs, or gallops. PULMONARY: Scattered rhonchi and crackles in bilateral lower lung bases using accessory muscles of breathing on BiPAP ABDOMEN: Soft, nontender, nondistended, normoactive bowel sounds. No palpable organomegaly. MUSCULOSKELETAL: No joint swelling or deformity. EXTREMITIES: No cyanosis, clubbing, or pedal edema. NEUROLOGICAL: Gross neurological examination did not reveal any focal deficits. SKIN: No rashes. - Labs CBC & Chem 7: 03/30/18 05:46 03/30/18 05:46 Labs: Abnormal Lab Results - Last 24 Hours (Table) 03/29/18 03/29/18 03/29/18 Range/Units 16:52 16:56 17:10 RBC 3.65 L (4.30-5.90) m/uL Hgb 10.3 L (13.0-17.5) gm/dL Hct 31.8 L (39.0-53.0) % RDW 16.0 H (11.5-15.5) % Plt Count 116 L (150-450) k/uL Lymphocytes # (Manual) 0.34 L (1.0-4.8) k/uL Myelocytes # (Manual) (0) k/uL PT (9.0-12.0) sec INR (<1.2) APTT (22.0-30.0) sec D-Dimer (<0.60) mg/L FEU ABG pH (7.35-7.45) ABG pCO2 (35-45) mmHg ABG pO2 (83-108) mmHg ABG HCO3 28 H (21-25) mmol/L ABG Total CO2 29 H (19-24) mmol/L ABG O2 Saturation 97.2 H (94-97) % Sodium (137-145) mmol/L BUN (9-20) mg/dL Creatinine (0.66-1.25) mg/dL Glucose (74-99) mg/dL POC Glucose (mg/dL) 114 H (75-99) mg/dL Calcium (8.4-10.2) mg/dL Magnesium (1.6-2.3) mg/dL Troponin I (0.000-0.034) ng/mL Total Protein (6.3-8.2) g/dL Albumin (3.5-5.0) g/dL Urine Protein (Negative) Urine Ketones (Negative) Urine Mucus (None) /hpf 03/29/18 03/29/18 03/29/18 Range/Units 17:10 17:10 19:00 RBC (4.30-5.90) m/uL Hgb (13.0-17.5) gm/dL Hct (39.0-53.0) % RDW (11.5-15.5) % Plt Count (150-450) k/uL Lymphocytes # (Manual) (1.0-4.8) k/uL Myelocytes # (Manual) (0) k/uL PT 13.1 H (9.0-12.0) sec INR 1.3 H (<1.2) APTT 33.1 H (22.0-30.0) sec D-Dimer 1.56 H (<0.60) mg/L FEU ABG pH (7.35-7.45) ABG pCO2 (35-45) mmHg ABG pO2 (83-108) mmHg ABG HCO3 (21-25) mmol/L ABG Total CO2 (19-24) mmol/L ABG O2 Saturation (94-97) % Sodium 133 L (137-145) mmol/L BUN 27 H (9-20) mg/dL Creatinine 0.55 L (0.66-1.25) mg/dL Glucose 110 H (74-99) mg/dL POC Glucose (mg/dL) (75-99) mg/dL Calcium 7.5 L (8.4-10.2) mg/dL Magnesium (1.6-2.3) mg/dL Troponin I (0.000-0.034) ng/mL Total Protein (6.3-8.2) g/dL Albumin (3.5-5.0) g/dL Urine Protein 1+ H (Negative) Urine Ketones 1+ H (Negative) Urine Mucus Few H (None) /hpf 03/29/18 03/29/18 03/30/18 Range/Units 23:19 23:19 05:46 RBC 3.33 L (4.30-5.90) m/uL Hgb 9.5 L (13.0-17.5) gm/dL Hct 29.0 L (39.0-53.0) % RDW 15.8 H (11.5-15.5) % Plt Count 117 L (150-450) k/uL Lymphocytes # (Manual) 0.48 L (1.0-4.8) k/uL Myelocytes # (Manual) 0.07 H (0) k/uL PT (9.0-12.0) sec INR (<1.2) APTT 33.3 H (22.0-30.0) sec D-Dimer (<0.60) mg/L FEU ABG pH (7.35-7.45) ABG pCO2 (35-45) mmHg ABG pO2 (83-108) mmHg ABG HCO3 (21-25) mmol/L ABG Total CO2 (19-24) mmol/L ABG O2 Saturation (94-97) % Sodium (137-145) mmol/L BUN (9-20) mg/dL Creatinine (0.66-1.25) mg/dL Glucose (74-99) mg/dL POC Glucose (mg/dL) (75-99) mg/dL Calcium (8.4-10.2) mg/dL Magnesium (1.6-2.3) mg/dL Troponin I 0.106 H* (0.000-0.034) ng/mL Total Protein (6.3-8.2) g/dL Albumin (3.5-5.0) g/dL Urine Protein (Negative) Urine Ketones (Negative) Urine Mucus (None) /hpf 03/30/18 03/30/18 03/30/18 Range/Units 05:46 05:46 05:46 RBC (4.30-5.90) m/uL Hgb (13.0-17.5) gm/dL Hct (39.0-53.0) % RDW (11.5-15.5) % Plt Count (150-450) k/uL Lymphocytes # (Manual) (1.0-4.8) k/uL Myelocytes # (Manual) (0) k/uL PT (9.0-12.0) sec INR (<1.2) APTT 39.6 H (22.0-30.0) sec D-Dimer (<0.60) mg/L FEU ABG pH (7.35-7.45) ABG pCO2 (35-45) mmHg ABG pO2 (83-108) mmHg ABG HCO3 (21-25) mmol/L ABG Total CO2 (19-24) mmol/L ABG O2 Saturation (94-97) % Sodium 135 L (137-145) mmol/L BUN 26 H (9-20) mg/dL Creatinine 0.59 L (0.66-1.25) mg/dL Glucose 182 H (74-99) mg/dL POC Glucose (mg/dL) (75-99) mg/dL Calcium 7.6 L (8.4-10.2) mg/dL Magnesium 2.4 H (1.6-2.3) mg/dL Troponin I 0.113 H* (0.000-0.034) ng/mL Total Protein 4.7 L (6.3-8.2) g/dL Albumin 1.8 L (3.5-5.0) g/dL Urine Protein (Negative) Urine Ketones (Negative) Urine Mucus (None) /hpf 03/30/18 03/30/18 03/30/18 Range/Units 09:08 09:14 12:12 RBC (4.30-5.90) m/uL Hgb (13.0-17.5) gm/dL Hct (39.0-53.0) % RDW (11.5-15.5) % Plt Count (150-450) k/uL Lymphocytes # (Manual) (1.0-4.8) k/uL Myelocytes # (Manual) (0) k/uL PT (9.0-12.0) sec INR (<1.2) APTT (22.0-30.0) sec D-Dimer (<0.60) mg/L FEU ABG pH 7.31 L (7.35-7.45) ABG pCO2 48 H (35-45) mmHg ABG pO2 152 H (83-108) mmHg ABG HCO3 (21-25) mmol/L ABG Total CO2 26 H (19-24) mmol/L ABG O2 Saturation 99.6 H (94-97) % Sodium (137-145) mmol/L BUN (9-20) mg/dL Creatinine (0.66-1.25) mg/dL Glucose (74-99) mg/dL POC Glucose (mg/dL) 179 H 171 H (75-99) mg/dL Calcium (8.4-10.2) mg/dL Magnesium (1.6-2.3) mg/dL Troponin I (0.000-0.034) ng/mL Total Protein (6.3-8.2) g/dL Albumin (3.5-5.0) g/dL Urine Protein (Negative) Urine Ketones (Negative) Urine Mucus (None) /hpf 03/30/18 Range/Units 12:31 RBC (4.30-5.90) m/uL Hgb (13.0-17.5) gm/dL Hct (39.0-53.0) % RDW (11.5-15.5) % Plt Count (150-450) k/uL Lymphocytes # (Manual) (1.0-4.8) k/uL Myelocytes # (Manual) (0) k/uL PT (9.0-12.0) sec INR (<1.2) APTT 38.9 H (22.0-30.0) sec D-Dimer (<0.60) mg/L FEU ABG pH (7.35-7.45) ABG pCO2 (35-45) mmHg ABG pO2 (83-108) mmHg ABG HCO3 (21-25) mmol/L ABG Total CO2 (19-24) mmol/L ABG O2 Saturation (94-97) % Sodium (137-145) mmol/L BUN (9-20) mg/dL Creatinine (0.66-1.25) mg/dL Glucose (74-99) mg/dL POC Glucose (mg/dL) (75-99) mg/dL Calcium (8.4-10.2) mg/dL Magnesium (1.6-2.3) mg/dL Troponin I (0.000-0.034) ng/mL Total Protein (6.3-8.2) g/dL Albumin (3.5-5.0) g/dL Urine Protein (Negative) Urine Ketones (Negative) Urine Mucus (None) /hpf Microbiology - Last 24 Hours (Table) 03/29/18 19:00 Urine Culture - Preliminary Urine,Voided Assessment and Plan Plan: Acute hypoxic respiratory failure: Secondary to bronchiectasis and sepsis secondary to bronchiectasis exacerbation and possible pneumonia possible mucous plug mediastinal's shift, patient is DO NOT INTUBATE because of which cannot do do bronchoscopy. Patient will undergo CAT scan ABGs. Patient will be covered with empiric antibiotics cefepime sputum cultures will be obtained. Patient was also started on high intensity heparin until we rule out any pulmonary embolism possibility of which is low and patient has atrial fibrillation with rapid ventricular rate for which patient is presently on Cardizem and amiodarone Deann patient does have chronic lung disease COPD emphysema contributed to his respiratory failure and patient is also on systemic steroids -Elevated troponin secondary to hypoxemia -Chronic bronchiectasis -Atrial fibrillation patient was started on Cardizem, amiodarone IV heparin echocardiogram will be obtained -Cachexia weight loss secondary to bronchiectasis moderate protein calorie malnutrition -Coronary artery disease -Ulcerative colitis on Imuran rheumatoid arthritis -Depression
[2018-03-30 18:13] VITALS: TEMP 98
[2018-03-30] MEDS: HEPARIN SOD,PORK IN 0.45% NACL 25,000 UNIT in 0.45% NACL 1 500ML.BAG IV SCH (18:53)
[2018-03-30] MEDS ORDERED: ARTIFICIAL TEARS-HYPROMELLOSE DROPS 15 ML BTL BOTH EYES PRN (20:33)
[2018-03-30] MEDS ORDERED: MORPHINE SULFATE 2 MG/ML SYRINGE IVP ONE (20:33)
[2018-03-30] MEDS ORDERED: LORazepam 2 MG/ML INJ IV PRN (20:33)
[2018-03-30] MEDS ORDERED: ATROPINE OPHTH SOLN 1% 5ML BTL SUBLINGUAL PRN (20:33)
[2018-03-30] MEDS ORDERED: ACETAMINOPHEN SUPPOSITORY 650 MG SUPP RECTAL PRN (20:33)
[2018-03-30] MEDS ORDERED: MORPHINE SULFATE 4 MG/ML SYRINGE IV PRN (20:33)
[2018-03-30] MEDS ORDERED: HALOPERIDOL LACTATE 5 MG/ML 1 ML VIAL IM PRN (20:33)
[2018-03-30] MEDS ORDERED: ONDANSETRON 4 MG/2 ML VIAL IVP PRN (20:33)
[2018-03-30] MEDS ORDERED: MORPHINE SULFATE 2 MG/ML SYRINGE IV PRN (20:33)
[2018-03-30] MEDS ORDERED: SCOPOLAMINE 1.5MG/72HR PATCH TRANSDERM SCH (20:45)
[2018-03-30] MEDS: MORPHINE SULFATE (100 MG/2 ML) 100 MG in SODIUM CHLORIDE 0.9% 100 ML IV SCH (21:37)
[2018-03-31] MEDS: methylPREDNISolone SOD SUCCI 125 MG/2 ML VIAL IV SCH ×2 (01:26→05:48)
[2018-03-31] MEDS: INSULIN ASPART 100 UNIT/ML 1 ML 10 ML VIAL SQ SCH ×2 (01:26→05:48)
[2018-03-31] MEDS: IPRATROPIUM-ALBUTEROL 3 ML NEB INHALATION SCH ×2 (03:31→07:40)
[2018-03-31] MEDS ORDERED: VANCOMYCIN TROUGH DUE 1 EACH MISC MISCELLANE ONE (05:00)
[2018-03-31] MEDS: MORPHINE SULFATE (100 MG/2 ML) 100 MG in SODIUM CHLORIDE 0.9% 100 ML IV SCH (05:30)
[2018-03-31] MEDS: VANCOMYCIN 750 MG in SODIUM CHLORIDE 0.9% 250 ML IVPB SCH (05:48)
[2018-03-31] MEDS: FORMOTEROL FUMARATE 20 MCG/2 ML NEBU INHALATION SCH (07:40)
[2018-03-31] MEDS: BUDESONIDE 0.5 MG/2 ML NEBU INHALATION SCH (07:40)
[2018-03-31 07:57] VITALS: BP 71/36
[2018-03-31] MEDS: TAMSULOSIN 0.4 MG CAP.ER.24H PO SCH (09:11)
[2018-03-31] MEDS: CEFEPIME 2 GM in SODIUM CHLORIDE 0.9% 50 ML IVPB SCH (09:12)
[2018-03-31] MEDS: PANTOPRAZOLE 40 MG/10 ML VIAL IV SCH (09:12)
[2018-03-31] MEDS: METOPROLOL SUCCINATE (ER) 25 MG TAB.ER.24H PO SCH (09:12)
[2018-03-31 09:16] VITALS: PULSE 94; RESP 11
[2018-03-31 10:16] LABS: Hemoglobin A1C 5.7 % (4.0-6.0)
--- NOTE | 2018-04-02 12:23 | CDI ---
Documentation Clarification Form Date: 04/02/18 From: Galina Portillo Phone: If you have a question regarding this query, please contact Cheri Dean at [phone] between 8am and 5pm Admit Date: 03/29/2018 4:10:00 PM Patient Name: John Feliciano Visit Number: [id number] Discharge Date: 03/31/2018 9:19:00 AM ATTENTION: The Clinical Documentation Specialists (CDI) and [facility] Coding Staff appreciate your assistance in clarifying documentation. Please respond to the clarification below the line at the bottom and electronically sign. The CDI & [facility] Coding staff will review the response and follow-up if needed. Please note: Queries are made part of the Legal Health Record. If you have any questions, please contact the author of this message via ITS. Dr. Anjelica Best Atrial Fibrillation is documented in the H&P, consult note and both progress notes on 03/30. History/Risk Factors: Patient has a history of a-fib and was admitted with acurte hypoxic respiratory failure, acute exacerbation of bronchiectasis, possible pneumonia and moderate malnutrition. Clinical Indicators: A-fib with rapid venticular response with pulse of 122 - 203 on day of admit. EKG/telemetry: Not done Treatment: IV Cardizem In your professional opinion, can you please clarify the type of Atrial Fibrillation, if known? Chronic/Permanent Paroxysmal Persistent Other, please specify Unable to determine Paroxysmal MTDD
--- NOTE | 2018-04-10 14:59 | P.DS ---
Providers Date of admission: 03/29/18 16:10 Expected date of discharge: 03/31/18 Attending physician: Anjelica Best Consults: 03/29/18 16:42 Consult Physician Routine Consulting Provider: Dao Goodson Consult Reason/Comments: acute resp failure Do you want consulting provider notified?: Yes Primary care physician: [facility] Course: Patient with advanced bronchiectasis, pulmonary fibrosis was admitted secondary to acute respiratory failure, patient did not have any significant improvement with aggressive therapy subsequently decided on hospice. Patient was subsequently discharged to a facility with hospice. Plan - Discharge Summary New Discharge Prescriptions: No Action Omeprazole 20 mg PO DAILY Metoprolol Succinate [Toprol XL] 25 mg PO HS Aspirin EC [Ecotrin Low Dose] 81 mg PO DAILY Mesalamine [Delzicol] 400 mg PO BID Atorvastatin [Lipitor] 20 mg PO DAILY Fluticasone/Salmeterol [Advair 250-50 Diskus] 2 puff INHALATION RT-BID predniSONE See Taper PO DAILY Tamsulosin [Flomax] 0.4 mg PO DAILY Discharge Medication List Aspirin EC [Ecotrin Low Dose] 81 mg PO DAILY 03/30/18 [History] Atorvastatin [Lipitor] 20 mg PO DAILY 03/30/18 [History] Fluticasone/Salmeterol [Advair 250-50 Diskus] 2 puff INHALATION RT-BID 03/30/18 [History] Mesalamine [Delzicol] 400 mg PO BID 03/30/18 [History] Metoprolol Succinate [Toprol XL] 25 mg PO HS 03/30/18 [History] Omeprazole 20 mg PO DAILY 03/30/18 [History] Tamsulosin [Flomax] 0.4 mg PO DAILY 03/30/18 [History] predniSONE See Taper PO DAILY 03/30/18 [History] Discharge Disposition: DISCH TO HOSPICE MED FACILTY
== END 2018-03-31 09:19 | disposition hospice, inpatient (51) | DRG 189 ==
LOC: 3SCARD 16:10 → 2SICU 16:18
PROVIDERS: ADMIT Internal Medicine; ATTEND Internal Medicine
PROC: 5A09457 Assistance with Respiratory Ventilation, 24-96 Consecutive Hours, Continuous Positive Airway Pressure (ICD-10-PCS; principal; 2018-03-29)
DX: J96.01 Acute respiratory failure with hypoxia (principal); I26.99 Other pulmonary embolism without acute cor pulmonale; J18.9 Pneumonia, unspecified organism; E44.0 Moderate protein-calorie malnutrition; J47.0 Bronchiectasis with acute lower respiratory infection; K51.90 Ulcerative colitis, unspecified, without complications; Z68.1 Body mass index [BMI] 19.9 or less, adult; G62.9 Polyneuropathy, unspecified; I48.0 Paroxysmal atrial fibrillation; J84.10 Pulmonary fibrosis, unspecified; J43.9 Emphysema, unspecified; M06.9 Rheumatoid arthritis, unspecified; T17.990A Other foreign object in respiratory tract, part unspecified in causing asphyxiation, initial encounter; E78.5 Hyperlipidemia, unspecified; F32.9 Major depressive disorder, single episode, unspecified; F41.9 Anxiety disorder, unspecified; G89.29 Other chronic pain; I25.10 Atherosclerotic heart disease of native coronary artery without angina pectoris; R77.9 Abnormality of plasma protein, unspecified; Z79.51 Long term (current) use of inhaled steroids; Z79.82 Long term (current) use of aspirin; Z87.891 Personal history of nicotine dependence; Z66 Do not resuscitate; Z88.1 Allergy status to other antibiotic agents; Z88.0 Allergy status to penicillin; Z88.8 Allergy status to other drugs, medicaments and biological substances
CPT/HCPCS: 36600; 71045; 80048; 80053; 81001; 82805; 83036; 83605; 83735; 83880; 84100; 84484; 85025; 85379; 85610; 85730; 87086; 94640; 94660

== ENCOUNTER 2018-03-30 20:50 | Inpatient (IN) | payer MEDICAID ==
[2018-03-31] MEDS ORDERED: LORazepam 0.5 MG TAB PO PRN (10:05)
[2018-03-31] MEDS ORDERED: MORPHINE SULFATE 4 MG/ML SYRINGE IV PRN (10:05)
[2018-03-31] MEDS ORDERED: MORPHINE SULFATE 2 MG/ML SYRINGE IV PRN (10:05)
[2018-03-31] MEDS: MORPHINE SULFATE (100 MG/2 ML) 100 MG in SODIUM CHLORIDE 0.9% 100 ML IV SCH ×4 (10:30→18:57)
--- NOTE | 2018-03-31 15:24 | P.HPIM ---
History of Present Illness H&P Date: 03/31/18 Chief Complaint: [facility] Hospice [facility] hospice: 77-year-old transfer from my [facility] for acute hypoxic respiratory failure secondary to severe bronchiectasis. Patient is also being treated for pulmonary embolism although possibly day which is low patient cannot get a CAT scan because he is too unstable to lie flat patient remains on BiPAP although his respiratory status significantly improved and tachypnea improved and his respirations are only 20 although his overall prognosis is extremely poor same thing was discussed with the family. Patient has significant emphysema on the CAT scan along with severe bronchiectasis with multiple exacerbations in the recent past and is a mediastinal shift without any pneumothorax on the right side mediastinal shift towards the left side mucus plugging cannot be ruled out although bronchoscopy cannot be done as patient doesn't want to be intubated patient is awake alert and less lethargic and less short of breath today please refer to arterial dictation for ABGs and the BiPAP settings. Patient is on present pressors support and broad-spectrum antibiotics. Mild troponin elevation secondary to hypoxemia no chest pain at this time. Because of atrial fibrillation patient was on initially on Cardizem now on amiodarone. If needed will consult cardiology Unable to obtain review of systems because patient is on BiPAP although is answering questions of property with head nodding. All his medications were reviewed appropriate changes were discussed in the interval history and assessment and plan Patient's overall prognosis is extremely poor same thing was discussed with the family patient is more appropriate for comfort care although did improve significantly compared to yesterday. Last night family /patient desired to proceed with comfort care. Comfort care initiated. Hospice consulted. Admitted to [facility] this morning. Maintained on morphine drip. Family at bedside. Review of Systems Unobtainable given patient's condition at this time. Past Medical History Additional Past Medical History / Comment(s): Severe cylindrical bronchiectasis , ulcerative colitis, rheumatoid arthritis maintained previously on methotrexate which was stopped due to pulmonary toxicity, remote history of empyema/pneumothorax, treated, cachexia, depression, coronary artery disease History of Any Multi-Drug Resistant Organisms: None Reported Additional Past Surgical History / Comment(s): Previous bronchoscopy, colonoscopy, EGD, chest tube placement Past Anesthesia/Blood Transfusion Reactions: No Reported Reaction Past Psychological History: No Psychological Hx Reported Smoking Status: Former smoker Past Alcohol Use History: None Reported Past Drug Use History: Unable to Obtain Medications and Allergies Home Medications Medication Instructions Recorded Confirmed Type Aspirin EC [Ecotrin Low Dose] 81 mg PO DAILY 03/30/18 03/31/18 History Atorvastatin [Lipitor] 20 mg PO DAILY 03/30/18 03/31/18 History Fluticasone/Salmeterol [Advair 2 puff INHALATION RT-BID 03/30/18 03/31/18 History 250-50 Diskus] Mesalamine [Delzicol] 400 mg PO BID 03/30/18 03/31/18 History Metoprolol Succinate [Toprol XL] 25 mg PO HS 03/30/18 03/31/18 History Omeprazole 20 mg PO DAILY 03/30/18 03/31/18 History Tamsulosin [Flomax] 0.4 mg PO DAILY 03/30/18 03/31/18 History predniSONE See Taper PO DAILY 03/30/18 03/31/18 History Allergies Allergy/AdvReac Type Severity Reaction Status Date / Time isosorbide [From Imdur] Allergy Unknown Verified 03/31/18 10:37 lisinopril Allergy Unknown Verified 03/31/18 10:37 methotrexate Allergy Unknown Verified 03/31/18 10:37 Penicillins Allergy Unknown Verified 03/31/18 10:37 fibromycin Allergy Unknown Uncoded 03/29/18 16:36 Physical Exam Vitals: Vital Signs Pulse Resp 03/31/18 12:00 92 12 03/31/18 10:00 94 11 L Intake and Output 03/31/18 03/31/18 03/31/18 06:59 14:59 22:59 Intake Total 79.73 Balance 79.73 Intake: Intake, IV Titration 79.73 Amount Morphine Sulfate (100 mg/ 79.73 2 ml) 100 mg In Sodium Chloride 0.9% 100 ml @ 1 MG/HR 1.02 mls/hr IV . Q24H [facility] Rx#:[id number] Other: Weight 52.163 kg GENERAL: appears comfortable on morphine drip, no facial grimacing CV: S1 and S2 present. PULMONARY: Scattered rhonchi and crackles throughout ABD: Soft, nontender, positive bowel sounds Assessment and Plan Assessment: Acute hypoxic respiratory failure: Secondary to bronchiectasis and sepsis secondary to bronchiectasis exacerbation and possible pneumonia possible mucous plug mediastinal's shift. -Elevated troponin secondary to hypoxemia -Chronic bronchiectasis -Atrial fibrillation with RVR, possibly new onset -Cachexia weight loss secondary to bronchiectasis moderate protein calorie malnutrition -Coronary artery disease -Ulcerative colitis on Imuran rheumatoid arthritis -Depression -No code, no CPR, no intubation -GIP hospice Plan: Continue on hospice/comfort care pathway. Maintain comfort with morphine drip, titrate to comfort. Family at bedside, questions, concerns addressed. Support given. Prognosis poor. The impression and plan of care has been dictated as directed. : I performed a history and examination of this patient, discussed the same with the dictator. I agree with the dictator's note ,documented as a scribe. Any additional findings or plans will be noted. Time taken: 35 minutes.
[2018-03-31 16:13] VITALS: BP 56/28; PULSE 88
[2018-03-31 22:57] VITALS: RESP 8
--- NOTE | 2018-03-31 23:41 | DS ---
DISCHARGE SUMMARY PRELIMINARY CAUSE OF : Bronchiectasis. OTHER DIAGNOSES: 1. Acute hypoxic respiratory failure secondary to bronchiectasis and sepsis. 2. Possible pneumonia with mucus plugs. 3. Elevated troponin. 4. Chronic bronchitis. 5. Atrial fibrillation. 6. Cachexia. 7. History of coronary artery disease. 8. History of ulcerative colitis. 9. History of depression. 10.Hospice. HISTORY OF PRESENT ILLNESS: This 77-year-old gentleman with a past history of multiple medical problems as mentioned earlier, followed by Dr. Marciano Ramsey in the outpatient setting, was admitted to [facility] and subsequently transferred to [facility] for further evaluation. Dr. Goodson evaluated the patient and the patient was not doing well for the past several days. Initially patient was thought to be a candidate for bronchoscopy and further evaluation and treatment. Despite intensive treatment, the patient's condition did not improve. Because of the multiple complex medical issues and the extremely medical condition the case was discussed by Dr. Goodson with the family and the family opted to go for hospice care. Please refer to Dr. Goodson's notes for further information. Subsequently the patient because of above mentioned multiple complex medical issues. The prognosis remained extremely grave throughout the hospitalization. See further notes for further information. MMODL / IJN: [id number] /
[2018-04-02] MEDS ORDERED: SCOPOLAMINE 1.5MG/72HR PATCH TRANSDERM SCH (21:00)
== END 2018-03-31 20:55 | disposition expired | DRG 951 ==
LOC: 2SICU 03-31 09:23 → 4MS4W 03-31 16:12
PROVIDERS: ADMIT Internal Medicine; ATTEND Internal Medicine
DX: Z51.5 Encounter for palliative care (principal); A41.9 Sepsis, unspecified organism; I26.99 Other pulmonary embolism without acute cor pulmonale; J96.01 Acute respiratory failure with hypoxia; E44.0 Moderate protein-calorie malnutrition; J47.1 Bronchiectasis with (acute) exacerbation; K51.90 Ulcerative colitis, unspecified, without complications; R64 Cachexia; F32.9 Major depressive disorder, single episode, unspecified; I25.10 Atherosclerotic heart disease of native coronary artery without angina pectoris; I48.91 Unspecified atrial fibrillation; J43.9 Emphysema, unspecified; M06.9 Rheumatoid arthritis, unspecified; Z79.899 Other long term (current) drug therapy; Z87.891 Personal history of nicotine dependence; Z88.0 Allergy status to penicillin; Z88.8 Allergy status to other drugs, medicaments and biological substances